=== PATIENT | female | born 1955 | race Caucasian/White ===

== ENCOUNTER 2024-03-04 20:33 | Emergency (ER) | payer MEDICARE, OTHER, SELFPAY ==
[2024-03-04 20:49] VITALS: BP 159/76; PULSE 71; RESP 14; TEMP 37; O2SAT 97
--- NOTE | 2024-03-04 22:15 | ED.GENADUL_ITS ---
Discharge Plan Disposition Patient Disposition: Home Condition: Good Discharge Details Clinical Impression: Fall from slip, trip, or stumble, Forehead laceration, Forehead contusion Primary Care Provider: Unknown,Unknown ED Provider: Johny Negrete Meds and New Rx's Prescriptions: Continued montelukast [Singulair] .Route .1 puff morning budesonide-formoterol [Symbicort] inhalation .daily Discharge Instructions Instructions: Laceration Repair With Stitches ED, Minor Head Injury, Adult ED Additional Instructions: You were seen after a trip and fall. Your laceration was repaired with stitches. There are a total of [address] These should be removed in 5 to 6 days. Wound care as we discussed. Ice on and off for couple of days to help with swelling. Tylenol or Motrin if needed for pain. You will not want this area to be exposed to the sun for prolonged periods of time as it may cause increase pigmentation of the scar. Watch for any signs of infection, worsening headache, neurologic change, vomiting and return to ED if such symptoms occur. You received the DTaP booster today. HPI General Mode of arrival: ambulatory . Date/Time Provider Initiated Documentation: 03/04/24 22:15 . Limitations to Documentation: no limitations . Information obtained by: patient . HPI Narrative: Patient presents to ED status post trip and fall with head laceration. Patient tripped while walking struck the frontal portion of her head and top part of her forehead on a piece of metal. She did not have any loss of consciousness. She is not on anticoagulation or antiplatelets. She denies any neurologic change, headache, neck pain, nausea or vomiting. She has had difficulty controlling the bleeding. She is unaware of her last tetanus. Denies any other injury or problem. Related Data Home Medications ?Medication ?Instructions ?Recorded ?Confirmed budesonide-formoterol inhalation .daily 03/04/24 montelukast .Route .1 puff morning 03/04/24 Allergies Allergy/AdvReac Type Severity Reaction Status Date / Time -cillins antibiotic Allergy Severe Skin Rash Uncoded 03/04/24 20:47 General Stated Complaint: Laceration ZEINA: 4 Review of Systems Narrative: Per HPI Exam Narrative Exam Narrative: Const: WDWN female in NAD. VS per triage. HEENT: NC. 3.5 cm laceration right forehead extending from just above the hairline down. Ecchymosis and contusion in this area. No bony tenderness. Neck: Supple. Trachea midline. Lungs: Normal respiratory effort. Neuro: A+O x 3. Normal speech, mentation, gait. Cranial nerves II - XII grossly intact. No gross motor or sensory deficit. Ext: No C/C/E. Course Vital Signs Vital signs: Vital Signs Temperature 98.6 F 03/04/24 20:49 Pulse 71 03/04/24 20:49 Respiratory Rate 14 03/04/24 20:49 Blood Pressure 159/76 H 03/04/24 20:49 Pulse Oximetry 97 03/04/24 20:49 Temperature 98.6 F 03/04/24 20:49 Temperature Source Temporal Artery Scan 03/04/24 20:49 Pulse 71 03/04/24 20:49 Respiratory Rate 14 03/04/24 20:49 Blood Pressure 159/76 H 03/04/24 20:49 Blood Pressure Position Sitting 03/04/24 20:49 Pulse Oximetry 97 03/04/24 20:49 Oxygen Delivery Method Room Air 03/04/24 20:49 Oxygen Flow Rate 0 03/04/24 20:49 Procedures Laceration Laceration 1: Site: face Side (If applicable): right Size (cm): 3.5 Description: linear and clean Depth: simple, single layer Local anesthetic: Lidocaine 1% and with Epi Amount of anesthesia used (mL): 3 Pre-repair: wound explored, irrigated extensively and deep structures intact Skin layer closed with: nylon Size (cm): 6-0 Number of sutures: 9 Technique: simple, interrupted Medical Decision Making Patient presenting to ED after trip and fall with forehead laceration and contusion. She had no loss of consciousness. She is not on anticoagulation or antiplatelets. She has no headache or neurologic symptoms. Tetanus is updated. Wound is anesthetized and irrigated. Laceration does not involve facial muscle or galea. It was repaired with 6-0 nylon suture in simple interrupted fashion. Wound care and suture removal discussed. Return precautions provided. PFSH All Active Problems Forehead contusion (Acute) Forehead laceration (Acute) Fall from slip, trip, or stumble (Acute) Medical History Asthma Social History Smoking risk assessment performed?: No
== END 2024-03-04 23:41 | disposition home or self-care (01) ==
PROVIDERS: Emergency Provider Emergency Medicine
DX: W01.118A Fall on same level from slipping, tripping and stumbling with subsequent striking against other sharp object, initial encounter; Y93.01 Activity, walking, marching and hiking; Y92.89 Other specified places as the place of occurrence of the external cause; Z23 Encounter for immunization; S01.81XA Laceration without foreign body of other part of head, initial encounter
CPT/HCPCS: 12013; 90471; 90715; 99283